=== PATIENT | male | born 1995 | race Two or more races ===

== ENCOUNTER 2016-07-23 22:46 | Emergency (ER) | payer SELFPAY ==
[~2016-07-23] VITALS: Ht 175.3 cm; Wt 65.3 kg
[2016-07-23] MEDS ORDERED: KETOROLAC TROMETHAMINE INJ 60 MG/2 ML VIAL IM ONE ×2 (23:00→23:04)
[2016-07-23] MEDS ORDERED: CYCLOBENZAPRINE 10 MG TABLET PO ONE (23:00)
[2016-07-23] MEDS ORDERED: CYCLOBENZAPRINE 10 MG TABLET ONE (23:04)
[2016-07-23] MEDS ORDERED: DEXAMETHASONE SOD PHOSPHATE 10 MG/ML VIAL ONE (23:53)
[2016-07-24] MEDS ORDERED: DEXAMETHASONE SOD PHOSPHATE 4 MG/ML VIAL IM ONE
[2016-07-24 00:25] VITALS: BP 120/62
== END 2016-07-24 00:26 | disposition home or self-care (01) ==
LOC: ER 22:48
DX: M54.31 Sciatica, right side (principal); M62.830 Muscle spasm of back; F17.200 Nicotine dependence, unspecified, uncomplicated
CPT/HCPCS: 96372 ×2; 99284; A4606; J1100; J1885; Z7610